=== PATIENT | male | born 1995 | race Hispanic/Latino ===

== ENCOUNTER 2017-07-17 14:17 | Emergency (ER) | payer BC ==
[2017-07-17 15:00] VITALS: TEMP 98.7
[2017-07-17] MEDS ORDERED: Oxycodone/Acetaminophen 5/325 mg Tab PO STA (15:14)
--- NOTE | 2017-07-17 15:27 | ED PDOC ---
Upper Extremity Pain/Injury Time Seen by Provider: 07/17/17 15:01 Chief Complaint (Nursing): Upper Extremity Problem/Injury Chief Complaint (Provider): Finger injury History Per: Patient Additional Complaint(s): Pt is a 21 yo male, PMH of Sociogramics, presents to ED with FB penetrating left 4- 5th digits. 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 Pt notes bat shattered and wooden spike went through his fingers. Pt right hand dominant. Tetanus utd Past Medical History Vital Signs: Last Vital Signs Temp 98.7 F 07/17/17 14:58 Pulse 107 H 07/17/17 14:58 Resp 18 07/17/17 14:58 BP 144/100 H 07/17/17 14:58 Pulse Ox 99 07/17/17 14:58 - Home Medications Home Medications: Ambulatory Orders Medication Instructions Recorded Clindamycin [Cleocin] 300 mg PO TID 10 Days cap 07/17/17 traMADol [Ultram] 50 mg PO Q4 #10 tab 07/17/17 - Allergies Allergies/Adverse Reactions: Allergies Allergy/AdvReac Type Severity Reaction Status Date / Time No Known Allergies Allergy Verified 07/17/17 14:57 - ECG O2 Sat by Pulse Oximetry: 99 Disposition - Clinical Impression Clinical Impression: Foreign body - Disposition Referrals: Kait Martinez MD [Medical Doctor] - Additional Instructions: Follow up in [address] martinez, [employer] until cleared! Prescriptions: Clindamycin [Cleocin] 300 mg PO TID 10 Days cap traMADol [Ultram] 50 mg PO Q4 #10 tab Instructions: Soft Tissue Foreign Body (ED) Forms: [employer] (Greenlandic)
[2017-07-17] MEDS ORDERED: Oxycodone/Acetaminophen 5/325 mg Tab ONE (16:04)
--- NOTE | 2017-07-17 16:18 | RAD ---
PROCEDURE: Left ring finger radiographs. HISTORY: FB COMPARISON: None. TECHNIQUE: AP radiograph of the left hand, as well as spot oblique and lateral images of left ring finger were obtained. FINDINGS: LEFT RING FINGER: Patient unable to extend the digits limiting the interpretation of the digits diffusely. The metacarpal bones are intact without fracture, dislocation or destructive bony lesion associated. Exam is performed for evaluation of potential retained radiodense foreign bodies, specifically split tears. Which can be very difficult to identify with radiographs or even CT. No retained radiodense foreign bodies are identified throughout the digits including 3rd 4th digits as are clinically questioned. No emphysema soft tissue changes are identified as well. JOINTS: No dislocation or subluxation grossly evident. Again, evaluation of the digits is compromised by inability to extend them. SOFT TISSUES: Grossly nonfocal as imaged. OTHER FINDINGS: None. IMPRESSION: No retained radiodense foreign body is seen in the left 4th digit/ ring finger as discussed above. Patient unable to extend the digits overlapping them and therefore limiting the interpretation. No definitive fracture or dislocation identified.
[2017-07-17] MEDS ORDERED: Bupivacaine 0.5% Inj(30mL) IJ ONE (17:00)
[2017-07-17] MEDS ORDERED: Lidocaine 1% Inj (20ml) IJ ONE (17:00)
[2017-07-17] MEDS ORDERED: Lidocaine 1% Inj (20ml) ONE (17:14)
[2017-07-17] MEDS ORDERED: Bupivacaine HCl 0.5% PF (30 ml) Inj ONE (17:20)
[2017-07-17] MEDS ORDERED: Povidone Iodine Topical 10% Sol ONE (17:25)
[2017-07-17] MEDS ORDERED: Bupivacaine HCl 0.5% PF (30 ml) Inj IJ ONE (17:30)
[2017-07-17 18:20] VITALS: BP 112/73; PULSE 74; RESP 16; O2SAT 100
--- NOTE | 2017-07-19 12:16 | CON ---
DATE: 07/17/2017 EMERGENCY ROOM CONSULTATION SURGEON: Kait Panchal MD. HISTORY OF PRESENT ILLNESS: This is a 21-year-old healthy male with a past medical history of Marfan syndrome, who is left hand dominant, who was playing with a baseball bat at home when a piece of the wood broke and it went through his left fourth and fifth fingers keeping them in a locked position. He presented to the emergency room with retained foreign bodies in his left fourth and fifth finger. The ER staff consulted me for retained foreign bodies and possible bony or nerve injuries. Thus, I came in to evaluate and treat the patient. PHYSICAL EXAMINATION: EXTREMITIES: Left fourth and fifth finger, there was a wooden shrapnel going piercing through the fourth and fifth distal phalanges keeping them in a locked position. The patient was unable to flex or extend the hand. The neurovascular exam to the tip of the finger appeared intact, although the patient did have some paresthesias in the left ring finger radial aspect distal to the impaled wood. There was good capillary refill to both fingertips. There was some tenderness to the left fifth distal phalanx tuft. There were entry and exit wounds on both the radial and ulnar sides of the left fourth and fifth fingers. ASSESSMENT: I reviewed the x-ray. There appeared to be a possible left small finger distal phalanx tuft fracture correlating with its tendon as an exam. I explained to the patient that after regional anesthesia, I would remove as much of the foreign material as possible in the emergency room. There may very likely be retained foreign bodies and if they are symptomatic in the future, they may need to be addressed at that time. I told him an x-ray would does not show up and if he has an MRI or some other testing in the future, little pieces of it may show up and again may need to be addressed in the future. He understood this. I warned him that if we could not all that out or piece broke, he has to go to the operating room to open the finger up. He understood this and wished to proceed. I will now dictate separate operative report. Kait Panchal MD [facility] # [id number]
--- NOTE | 2017-07-19 12:47 | OP ---
PROCEDURE DATE: 07/17/2017 PREOPERATIVE DIAGNOSES: 1. Left ring finger retained foreign body. 2. Left small finger retained foreign body. 3. Possible digital nerve injury to the left ring finger radial digital nerve. 4. Likely left small finger distal phalanx tuft nondisplaced fracture. POSTOPERATIVE DIAGNOSES: 1. Left ring finger retained foreign body. 2. Left small finger retained foreign body. 3. Possible digital nerve injury to the left ring finger radial digital nerve. 4. Likely left small finger distal phalanx tuft nondisplaced fracture. PROCEDURE PERFORMED: 1. Debridement of left small finger possible open fracture site skin and soft tissue. 2. Exploration of left small finger penetrating wound. 3. Removal of foreign body from left small finger. 4. Exploration of left ring finger penetrating wound. 5. Removal of foreign body from left ring finger. SURGEON: Kait Panchal MD. TYPE OF ANESTHESIA: Regional. 1. Left ring finger radial digital nerve block. 2. Left ring finger ulnar digital nerve block. 3. Left small finger radial digital nerve block. 4. Left small finger ulnar digital nerve block. INDICATION FOR THE PROCEDURE FOLLOWS: Please refer to my separately dictated ER consultation for history and physical. DESCRIPTION OF PROCEDURE: 0.5% Marcaine mixed with 1% lidocaine was used in a regional nerve block as listed above. After allowing sufficient time for the anesthetic to take effect, the hand was prepped and draped in the usual clean and sterile manner. We painted the distal portion of the wood fragments on both fingers with Betadine. After allowing sufficient time for the anesthetic to take effect, we removed foreign material from both the left fourth and finger by placing a longitudinal traction. The incision was made slightly larger with a clamp and a scissors. We removed the 4 pieces of wood. After doing this, there was a small piece of wood that was still underneath the skin, so incision was made larger and the small piece of wood was found after exploration and removed from the ring finger. In the left small finger, there was a 1.1 cm laceration with irregular skin edges. This was possibly communicating with the underlying distal phalanx tuft fracture and now that the patient's finger was anesthetized, the finger was numb, but preoperatively he had tenderness down correlating with the x-ray which was not a high quality x-ray. We have a presumptive distal phalanx fracture, so I debrided some of the skin and soft tissue site at the left small finger distal phalanx open fracture site. I explored the wound by making them larger both of them to make sure there was no retained foreign bodies left. I did not see any through my eyes on both the left fourth and left fifth finger. After doing this, I left the hand soak in normal saline and dilute Betadine several liters 15 minutes. After this, I reprepped and draped the area and then I closed the larger incision on the left small finger ulnar aspect, which was 1.1 cm with 5-0 nylon interrupted sutures and I closed one of the puncture wounds in a left ring finger radial aspect with a 5-0 nylon suture. It left the 2 remaining entry and exit wounds of the ring and small finger open for drainage. After removing the foreign material, the patient was able to flex and extend the digit normally indicating intact flexor and extensor tendons and there was good capillary refill. I then placed Xeroform dry sterile dressing. The patient tolerated the procedure well. Postop instructions were discussed with the patient and keep the dressing on for 2 days and then the local wound care twice a day, to keep the arm elevated and he needs to take oral antibiotics for 2 weeks for presumed open fracture. 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 He will need to follow up with me in a week for a wound check and if he has any signs of redness or warmth or infection, he has to see me and he may need further procedures or be hospitalized for IV antibiotics and it was also spoke and told to the patient and his mother the probability of there being retained foreign bodies in either finger and if these become symptomatic in the future, he will need further surgical procedures. They understood this. Kait Panchal MD
== END 2017-07-17 18:19 | disposition home or self-care (01) ==
LOC: H.ER 14:17
DX: M79.5 Residual foreign body in soft tissue (principal); Q87.40 Marfan syndrome, unspecified